=== PATIENT | male | born 1970 | race Caucasian/White ===

== ENCOUNTER 2018-07-05 11:25 | Emergency (ER) | payer OTHER ==
[~2018-07-05] VITALS: Ht 175.3 cm; Wt 72.7 kg
[2018-07-05 11:43] VITALS: BP 128/90; Ht 175.3 cm; Wt 72.7 kg
[2018-07-05] MEDS ORDERED: VOLTAREN75 MG PO (12:38)
[2018-07-05] MEDS ORDERED: TYLENOL W/CODEI1 TAB PO (12:38)
== END 2018-07-05 13:33 | disposition home or self-care (01) ==
LOC: D.ER 11:25
DX: S22.42XA Multiple fractures of ribs, left side, initial encounter for closed fracture (principal); Y04.2XXA Assault by strike against or bumped into by another person, initial encounter; Y93.89 Activity, other specified; Y92.019 Unspecified place in single-family (private) house as the place of occurrence of the external cause

== ENCOUNTER 2018-11-04 20:24 | Observation (INO) | payer OTHER ==
[~2018-11-04] VITALS: Ht 175.3 cm; Wt 79.5 kg
[~2018-11-04 20:24] MED LIST: TYLENOL W/CODEI1 TAB PO; VOLTAREN75 MG PO
[2018-11-04 21:33] LABS: APPEARANCE CLEAR (CLEAR); BILIRUBIN NEGATIVE (NEGATIVE); COLOR YELLOW (YELLOW); GLUCOSE NEGATIVE (NEGATIVE); KETONE NEGATIVE (NEGATIVE); NITRITE NEGATIVE (NEGATIVE); PROTEIN NEGATIVE (NEGATIVE); SPECIFIC GRAVITY 1.015 (1.005-1.020)
[2018-11-04 21:49] LABS: BASOPHILS 0.1 % (0-2); EOSINOPHILS 2.7 % (0-7); HEMATOCRIT 35.9 % (42.0-54.0); HEMOGLOBIN 12.1 g/dL (13.5-17.5); IMMATURE GRANULOCYTES 0.3 % (0-5); LYMPHOCYTES 14.6 % (15-50); MCH 30.9 pg (26.0-34.0); MCHC 33.7 g/dL (31.0-37.0); MCV 91.6 fL (80.0-100.0); MEAN PLATELET VOLUME 9.1 fL (7.4-10.4); MONOCYTES 7.8 % (2-11); NEUTROPHILS 74.5 % (40-80); PLATELET COUNT 360 10x3/uL (130-400); RBC 3.92 10x6/uL (4.20-6.10); RDW 13.2 % (11.5-14.5)
[2018-11-04 21:50] LABS: ALBUMIN 3.3 g/dL (3.4-5.0); ALKALINE PHOSPHATASE 84 U/L (46-116); ALT (SGPT) 20 U/L (10-68); AMYLASE - SERUM 37 U/L (25-115); BILIRUBIN - TOTAL 0.27 mg/dL (0.2-1.3); CALC OSMOLALITY 272 mosm/kg (275-300); CALCIUM 8.6 mg/dL (8.5-10.1); CARBON DIOXIDE 24.9 mmol/L (21.0-32.0); CHLORIDE - SERUM 98 mmol/L (98-107); CREATININE - SERUM 0.9 mg/dL (0.6-1.3); GLUCOSE 104 mg/dL (74-106); LIPASE 98 U/L (73-393); POTASSIUM - SERUM 3.6 mmol/L (3.5-5.1); PROTEIN - SERUM 7.9 g/dL (6.4-8.2); SODIUM 136 mmol/L (136-145); UREA NITROGEN 16 mg/dL (7-18); eGFR NON AFRICAN AMERICAN > 90 mL/min (90-120)
--- NOTE | 2018-11-05 00:43 | NUR ---
PT STATES THAT HE WANTS TO STAY AT THIS HOSPITAL AND MAKE PAYMENTS ON BILL.
[2018-11-05] MEDS ORDERED: ZOLOFT50 MG PO (01:10)
[2018-11-05] MEDS ORDERED: OMEPRAZOLE20 M1 PO (01:11)
[2018-11-05 01:30] VITALS: BP 127/78
[2018-11-05 01:31] VITALS: BP 127/78; BMI 25.9
--- NOTE | 2018-11-05 01:40 | NUR ---
PT RECIEVED FROM ER VIA WC TO ROOM [address] [facility]. ADMIT FINISHED HILDA, PT WANTS TO TRY AND GET SOME SLEEP, PENDING POSSIBLE SURGERY IN AM.
[2018-11-05 04:00] VITALS: BP 115/69
--- NOTE | 2018-11-05 04:31 | NUR ---
PT RESTING IN BED WITH EYES CLOSED. NO ACUTE DISTRESS NOTED.
--- NOTE | 2018-11-05 06:43 | NUR ---
PT REQUESTED HIS PAIN MEDICATION. IT WAS NO LONGER AVAILABLE IN THE [facility]. REASON UNKNOWN. I TRIED TO EXPLAIN TO THE PT THAT PHARMACY WOULD BE HERE IN 15 MINS TO REENTER THE MEDS. HE REPLIED COME ON MAN, THE DR ORDERED MY F-ING PAIN MEDS, JUST GIVE IT TO ME. I TRIED TO TELL HIM I COULD NOT PULL FROM A COMPUTERIZED MACHINE WITHOUT IT SAYING IT WAS AVAILABLE, HE REPLIED F YOU MAN, AND I LEFT THE ROOM.
--- NOTE | 2018-11-05 07:45 | NUR ---
ASSESSMENT COMPLETE. IV TO L HAND PATENT. NPO FOR SURGERY TODAY. DENIES ANY NEEDS AT THIS TIME.
--- NOTE | 2018-11-05 08:00 | NUR ---
OFF FLOOR TO OR VIA BED.
[2018-11-05 08:11] VITALS: Ht 175.3 cm; Wt 79.5 kg
[2018-11-05] MEDS ORDERED: HYDROCODON-ACE1 EAC7 PO (09:41)
[2018-11-05] MEDS ORDERED: LEVOFLOXACIN500 MG PO (09:41)
[2018-11-05 10:28] VITALS: BP 109/73
--- NOTE | 2018-11-05 10:30 | NUR ---
RECIEVED BACK TO ROOM FROM RECOVERY ROOM VIA BED. LAP SITES X 4 WITH STERI STRIPS INTACT. VSS. O2 SAT 94-95% ON RA. ENCOURAGED TO TAKE DEEP BREATHS. PILLOW AT BEDSIDE TO SPLINT WITH COUGHING. SCD'S IN USE TO BILAT LEGS. DENIES ANY PAIN OR NAUSEA AT THIS TIME.
--- NOTE | 2018-11-05 13:19 | NUR ---
NORCO GIVEN FOR COMPLAINT OF INCISIONAL PAIN. VSS. DENIES ANY FURTHER NEEDS AT THIS TIME.
--- NOTE | 2018-11-05 14:45 | NUR ---
CONTINUING TO COMPLAIN OF PAIN AFTER NORCO WAS GIVEN. TORADOL GIVEN SLOW IVP. ENCOURAGED TO GET OOB AND AMBULATE WHEN ABLE. VOICED UNDERSTANDING. STATES HE'S IN TOO MUCH PAIN AT THIS TIME AND DOESN'T UNDERSTAND WHY IS HE IS STILL HAVING SO MUCH PAIN. STATES HE WAS UNABLE TO ROLL OVER AND ANSWER THE PHONE EARLIER. TRIED TO EXPLAIN THAT HE WILL BE IN SOME PAIN THIS SOON AFTER SURGERY EVEN WHILE TAKING PAIN MEDICATION. ALSO EXPLAINED THAT TRAPPED GAS COULD BE THE CAUSE OF HIS PAIN AND THAT AMBULATING WILL HELP. STATES HE NEEDED SOME TIME TO HIMSELF BECAUSE HE WAS STILL UPSET ABOUT BEING IN PAIN FOR 15 HOURS BETWEEN YESTERDAY AND LAST NIGHT.
--- NOTE | 2018-11-05 15:28 | NUR ---
MORPHINE GIVEN SLOW IVP FOR COMPLAINT OF INCISIONAL PAIN.
--- NOTE | 2018-11-05 15:40 | NUR ---
AMBULATING IN HALLWAY WITH WALKER WITH FAMILY.
--- NOTE | 2018-11-05 16:15 | NUR ---
STATES PAIN IS MUCH BETTER AFTER AMBULATING. VOIDED 200 CC'S WITHOUT DIFFICULTY.
--- NOTE | 2018-11-05 17:45 | NUR ---
TOLERATED LUNCH AND DINNER WITHOUT DIFFICULTY. IV REMVOVED. CATHETER TIP INTACT. DISCHARGE TEACHING GIVEN TO PATIENT. VOICED UNDERSTANDING.
--- NOTE | 2018-11-05 17:50 | NUR ---
DC'D HOME WITH FAMILY. ESCORTED TO VEHICLE BY SCOW HAND VIA WC WITH BELONGINGS.
== END 2018-11-05 17:45 | disposition home or self-care (01) ==
LOC: D.ER 20:24 → D.EDHOLD 23:57 → D.M3 23:57 → OBSVTIME 23:57 → D.EDHOLD 23:57 → D.M3 11-05 01:02
PROVIDERS: Family Medicine; ADMIT Surgery
DX: K35.33 Acute appendicitis with perforation, localized peritonitis, and gangrene, with abscess (principal); K21.9 Gastro-esophageal reflux disease without esophagitis; Z87.891 Personal history of nicotine dependence

== ENCOUNTER 2019-08-06 11:30 | Emergency (ER) | payer MEDICAID ==
[~2019-08-06] VITALS: Ht 175.3 cm; Wt 77.3 kg
[~2019-08-06 11:30] MED LIST changes: +HYDROCODON-ACE1 EAC7 PO; +LEVOFLOXACIN500 MG PO; +OMEPRAZOLE20 M1 PO; +ZOLOFT50 MG PO
[2019-08-06 11:32] VITALS: Ht 175.3 cm; Wt 77.3 kg
[2019-08-06 12:02] LABS: HEMATOCRIT 42.4 % (42.0-54.0); HEMOGLOBIN 14.6 g/dL (13.5-17.5); MCH 31.1 pg (26.0-34.0); MCHC 34.4 g/dL (31.0-37.0); MCV 90.4 fL (80.0-100.0); PLATELET COUNT 282 10x3/uL (130-400); RBC 4.69 10x6/uL (4.20-6.10); WBC 26.9 10x3/uL (4.8-10.8)
[2019-08-06 12:18] LABS: CALC OSMOLALITY 278 mosm/kg (275-300); CALCIUM 9.3 mg/dL (8.5-10.1); CHLORIDE - SERUM 101 mmol/L (98-107); CREATININE - SERUM 0.8 mg/dL (0.6-1.3); GLUCOSE 125 mg/dL (74-106); POTASSIUM - SERUM 4.1 mmol/L (3.5-5.1); SODIUM 138 mmol/L (136-145); UREA NITROGEN 17 mg/dL (7-18); eGFR NON AFRICAN AMERICAN > 90 mL/min (90-120)
[2019-08-06 12:21] LABS: ALKALINE PHOSPHATASE 71 U/L (46-116); ALT (SGPT) 39 U/L (10-68); BILIRUBIN - TOTAL 1.07 mg/dL (0.2-1.3); MAGNESIUM - SERUM 2.2 mg/dL (1.8-2.4); PROTEIN - SERUM 7.9 g/dL (6.4-8.2)
[2019-08-06 12:52] LABS: BASOPHILS 1 % (0-2); LYMPHOCYTES 4 % (15-50); MONOCYTES 7 % (2-11); NEUTROPHILS 85 % (40-80); PLATELET ESTIMATE NORMAL
[2019-08-06] MEDS ORDERED: NAPROSYN500 MG PO (13:18)
[2019-08-06] MEDS ORDERED: SKELAXIN800 MG PO (13:18)
[2019-08-06] MEDS ORDERED: AUGMENTIN 875-11 TAB PO (13:18)
[2019-08-06 14:10] VITALS: BP 153/96
== END 2019-08-06 14:10 | disposition home or self-care (01) ==
LOC: D.ER 11:30
PROVIDERS: Family Medicine
DX: J18.9 Pneumonia, unspecified organism (principal); S22.39XA Fracture of one rib, unspecified side, initial encounter for closed fracture; V89.2XXA Person injured in unspecified motor-vehicle accident, traffic, initial encounter; Y93.9 Activity, unspecified; Y92.9 Unspecified place or not applicable; Z72.0 Tobacco use

== ENCOUNTER 2019-08-06 18:09 | Emergency (ER) | payer MEDICAID ==
[~2019-08-06] VITALS: Ht 175.3 cm; Wt 77.3 kg
[~2019-08-06 18:09] MED LIST changes: +AUGMENTIN 875-11 TAB PO; +NAPROSYN500 MG PO; +SKELAXIN800 MG PO
[2019-08-06 18:53] VITALS: Ht 175.3 cm; Wt 77.3 kg
[2019-08-06 21:01] LABS: HEMATOCRIT 41.5 % (42.0-54.0); MCH 30.4 pg (26.0-34.0); MCHC 33.7 g/dL (31.0-37.0); MEAN PLATELET VOLUME 9.2 fL (7.4-10.4); PLATELET COUNT 282 10x3/uL (130-400); RBC 4.61 10x6/uL (4.20-6.10)
[2019-08-06 21:04] LABS: ANION GAP 15.8 mmol/L (8-16); CALCIUM 9.1 mg/dL (8.5-10.1); POTASSIUM - SERUM 3.8 mmol/L (3.5-5.1)
[2019-08-06 21:08] LABS: CREATININE - SERUM 1.2 mg/dL (0.6-1.3)
[2019-08-06 21:12] LABS: ALBUMIN 3.9 g/dL (3.4-5.0); BILIRUBIN - TOTAL 1.23 mg/dL (0.2-1.3); PROTEIN - SERUM 7.7 g/dL (6.4-8.2)
[2019-08-06 21:18] LABS: LYMPHOCYTES 3 % (15-50); MONOCYTES 2 % (2-11); NEUTROPHILS 93 % (40-80); PLATELET ESTIMATE NORMAL
[2019-08-07 00:42] VITALS: BP 123/77
== END 2019-08-07 00:42 | disposition other institution (70) ==
LOC: D.ER 18:09
PROVIDERS: Family Medicine
DX: J18.9 Pneumonia, unspecified organism (principal); R09.02 Hypoxemia; J90 Pleural effusion, not elsewhere classified; Z72.0 Tobacco use

== ENCOUNTER → 2019-08-20 15:41 | Outpatient (CLI) | payer MEDICAID ==
[2019-08-06 18:53] VITALS: BMI 25.1
[2019-08-20 17:34] LABS: BASOPHILS 0.2 % (0-2); HEMATOCRIT 39.7 % (42.0-54.0); HEMOGLOBIN 12.6 g/dL (13.5-17.5); IMMATURE GRANULOCYTES 1.7 % (0-5); LYMPHOCYTES 16.3 % (15-50); MCH 29.2 pg (26.0-34.0); MCHC 31.7 g/dL (31.0-37.0); MCV 92.1 fL (80.0-100.0); MEAN PLATELET VOLUME 8.4 fL (7.4-10.4); MONOCYTES 8.3 % (2-11); NEUTROPHILS 71.5 % (40-80); RBC 4.31 10x6/uL (4.20-6.10); RDW 14.1 % (11.5-14.5); WBC 14.4 10x3/uL (4.8-10.8)
[2019-08-20 18:12] LABS: PLATELET COUNT 1068 10x3/uL (130-400)
== END | disposition home or self-care (01) ==
LOC: D.LABREF 15:41
PROVIDERS: ATTEND Student in an Organized Health Care Education/Training Program
DX: R78.81 Bacteremia (principal); J18.9 Pneumonia, unspecified organism

== ENCOUNTER → 2019-08-27 12:13 | Outpatient (CLI) | payer MEDICAID ==
[2019-08-06 18:53] VITALS: BMI 25.1
[2019-08-27 14:03] LABS: BASOPHILS 0.4 % (0-2); EOSINOPHILS 2.2 % (0-7); HEMATOCRIT 38.9 % (42.0-54.0); HEMOGLOBIN 12.1 g/dL (13.5-17.5); IMMATURE GRANULOCYTES 0.6 % (0-5); LYMPHOCYTES 19.5 % (15-50); MCH 28.7 pg (26.0-34.0); MCHC 31.1 g/dL (31.0-37.0); MCV 92.4 fL (80.0-100.0); MEAN PLATELET VOLUME 8.6 fL (7.4-10.4); MONOCYTES 6.7 % (2-11); NEUTROPHILS 70.6 % (40-80); RBC 4.21 10x6/uL (4.20-6.10); RDW 14.4 % (11.5-14.5); WBC 12.6 10x3/uL (4.8-10.8)
[2019-08-27 14:10] LABS: PLATELET COUNT 671 10x3/uL (130-400)
== END | disposition home or self-care (01) ==
LOC: D.LABREF 12:13
PROVIDERS: ATTEND Student in an Organized Health Care Education/Training Program
DX: J18.9 Pneumonia, unspecified organism (principal); Z79.899 Other long term (current) drug therapy

== ENCOUNTER → 2019-09-03 16:54 | Outpatient (CLI) | payer MEDICAID ==
[2019-08-06 18:53] VITALS: BMI 25.1
[2019-09-03 17:24] LABS: BASOPHILS 0.3 % (0-2); EOSINOPHILS 3.6 % (0-7); HEMOGLOBIN 13.8 g/dL (13.5-17.5); IMMATURE GRANULOCYTES 1.2 % (0-5); LYMPHOCYTES 20.9 % (15-50); MCH 29.6 pg (26.0-34.0); MCHC 32.9 g/dL (31.0-37.0); MCV 89.9 fL (80.0-100.0); MEAN PLATELET VOLUME 8.7 fL (7.4-10.4); MONOCYTES 7.6 % (2-11); NEUTROPHILS 66.4 % (40-80); RBC 4.67 10x6/uL (4.20-6.10); RDW 14.4 % (11.5-14.5); WBC 14.6 10x3/uL (4.8-10.8)
[2019-09-03 17:28] LABS: PLATELET COUNT 429 10x3/uL (130-400)
== END | disposition home or self-care (01) ==
LOC: D.LABREF 16:54
PROVIDERS: ATTEND Student in an Organized Health Care Education/Training Program
DX: A41.01 Sepsis due to Methicillin susceptible Staphylococcus aureus (principal); J18.9 Pneumonia, unspecified organism